=== PATIENT | male | born 1955 | race Caucasian/White ===

== ENCOUNTER 2018-12-06 15:41 | Inpatient (IN) ==
[2018-12-06] MEDS ORDERED: SODIUM CHLORIDE 0.9% 1000ML 1,000 ML IV SCH (16:00)
[2018-12-06 16:17] LABS: Basophils # (auto) 0.02 K/uL (0-0.2); Basophils % (auto) 0.3 %; Eosinophils # (auto) 0.05 K/uL (0-0.5); Eosinophils % (auto) 0.7 %; Hematocrit (blood only) 40.6 % (42-52); Hemoglobin 14.5 g/dL (14.0-18.0); Immature Granulocytes # (auto) 0.01 K/uL (0.00-0.02); Immature Granulocytes % (auto) 0.1 %; Lymphocytes # (auto) 0.73 K/uL (1.2-3.4); Lymphocytes % (auto) 9.6 %; Mean Corpuscular Hgb Conc 35.7 g/dL (32-36); Mean Corpuscular Volume 86.2 fL (80-100); Mean Platelet Volume 9.8 fL (7.4-10.4); Monocytes # (auto) 0.72 K/uL (0.11-0.59); Monocytes % (auto) 9.5 %; Neutrophils # (auto) 6.05 K/uL (1.4-6.5); Neutrophils % (auto) 79.8 %; Platelet Count 258 K/uL (130-400); RDW Coefficient of Variation 13.6 % (11.5-14.5); RDW Standard Deviation 43.5 fL (36.4-46.3); Red Blood Count 4.71 M/uL (4.7-6.1); White Blood Count 7.58 K/uL (4.8-10.8)
--- NOTE | 2018-12-06 16:19 | XRay Report ---
XR chest 1V portable CLINICAL HISTORY: weakness COMPARISON STUDY: 10/13/2014 FINDINGS: The cardiac and mediastinal contours are normal. There is no evidence of focal pulmonary co nsolidation. There is no evidence of failure. No pleural effusions are visualized.[A tiny radiopaque density projects over the left lower lung zone. This remain stable. There is equivocal slight superio r left hilar retraction unchanged from the prior study. There is slight prominence of the upper lobe interstitial markings. IMPRESSION: No active disease in the chest. Electronically signed by: Bakari Gee M.D. 12/06/2018 4:17 PM
[2018-12-06 16:28] LABS: Partial Thromboplastin Time 27.6 Seconds (21.0-31.0); Prothrombin Time 10.3 Seconds (9.0-12.0)
[2018-12-06 16:35] LABS: Alanine Aminotransferase 16 U/L (12-78); Aspartate Aminotransferase 12 U/L (15-37); BUN Creatinine Ratio 18.9 (10-20); Blood Urea Nitrogen 15 mg/dl (7-18); Carbon Dioxide 28 mmol/L (21-32); Chloride 103 mmol/L (98-107); Creatinine Clr Calc Pharmacy 66.8 ml/min; Est GFR (Non-African American) 94.9; Glucose 103 mg/dl (70-99); Magnesium 2.7 mg/dl (1.8-2.4); Potassium 3.8 mmol/L (3.5-5.1); Sodium 138 mmol/L (136-145)
--- NOTE | 2018-12-06 16:39 | CT Scan Report ---
CT head/brain wo con CLINICAL HISTORY: Headache COMPARISON STUDY: No previous studies for comparison. TECHNIQUE: Axial CT of the brain is performed from the vertex to the skull base. IV contrast was not administered for this examination. A dose lowering technique was utilized adhering to the principles of ALARA. CT DOSE: 638.56 mGycm FINDINGS: No intra or extra-axial mass lesions are visualized. There is no CT evidence of acute cortical infarc tion. There is no evidence of midline shift. There is no acute hemorrhage. No calvarial fractures ar e visualized. There are patchy white matter hypodensities likely on a small vessel basis. There is no evidence of pathologic ventricular dilatation. There is no evidence of acute sinusitis IMPRESSION: No acute intracranial findings Electronically signed by: Bakari Gee M.D. 12/06/2018 4:37 PM
--- NOTE | 2018-12-06 16:44 | Emergency Department Note ---
Entered by Meghna Carreon acting as a scribe for Cisco Grayson DO History of Present Illness General Chief complaint: Arrhythmia/Palpitations Stated complaint: RACING HEARTBEAT Source: patient History of Present Illness Provider complaint: Palpitations Location: neck and chest Pain Consistency: + other (worsening ) Quality: + constant Associated symptoms: + nausea/vomiting (nausea. No vomiting ) and + other (Positive: palpitations, neck pain, neck stiffness. Negative: abdominal pain, leg swelling, leg pain); no chest pain and no fever/chills The patient is a 63 year old male with past medical of appendectomy, ankylosing spondylitis, who presents to the ED with complaints of worsening palpitations that started a year ago. The patient reports he was taking care of his after she had a stroke and did not want to mention anything about his palpitations. He notes his palpitations were more frequent today. He states is nauseas and has neck pain and stiffness. The patient denies leg pain, leg swelling, chest pain, vomiting, abdominal pain, fever, chills, or history of blood clots in lungs or legs. Home Medications Home Medications Medication Instructions Recorded Confirmed Type oexfmqg-fzhnfnofrtqaj-djouihmi 1 - 2 tab PO BID PRN 12/06/18 12/06/18 History [Excedrin Migraine] golimumab [Simponi] 50 mg SUBCUT MONTHLY 12/06/18 12/06/18 History Allergies Allergy/AdvReac Type Severity Reaction Status Date / Time acetaminophen [From Lortab] Allergy Unknown Verified 12/06/18 20:30 cyclobenzaprine Allergy Unknown Verified 12/06/18 20:30 hydrocodone [From Lortab] Allergy Unknown Verified 12/06/18 20:30 Past Med/Surg History Medical History Abdominal pain (Acute) Ankylosing spondylitis (Acute) Small bowel obstruction (Acute) Surgical History History of appendectomy (Resolved) Family History Father Stroke Mother , of "old age" but no known health issues No problems noted. Other No known problems Social History Feels Safe at Home: Yes Smoking Status: Never smoker Hx Alcohol Use: No Hx Substance Use: No Review of Systems See HPI for pertinent positives & negatives. and A total of 10 systems reviewed and were otherwise negative Physical Exam Vital Signs Vital Signs - 24 hr 12/06/18 15:44 12/06/18 16:03 12/06/18 16:13 Temperature 36.8 C Temperature Source Oral Sepsis Recent Fever Within 48 Hours No Sepsis Action Taken by Nursing No Action Required Pulse Rate 103 H Pulse Rate [Left Finger] 90 Pulse Rate from SpO2 Sensor Respiratory Rate 20 20 Respiratory Effort / Characteristics Non-Labored Non-Labored Respiratory Depth Normal Normal Respiratory Pattern Regular Regular Blood Pressure 151/67 H Blood Pressure [Left Arm] 123/86 Blood Pressure Mean 95 Blood Pressure Mean [Left Arm] 98 Pulse Oximetry 98 96 97 Oxygen Delivery Method Room Air Room Air Room Air 12/06/18 17:04 12/06/18 17:29 12/06/18 18:04 Temperature Temperature Source Sepsis Recent Fever Within 48 Hours Sepsis Action Taken by Nursing Pulse Rate Pulse Rate [Left Finger] 105 H 102 H 114 H Pulse Rate from SpO2 Sensor Respiratory Rate 20 18 20 Respiratory Effort / Characteristics Non-Labored Non-Labored Non-Labored Respiratory Depth Normal Normal Normal Respiratory Pattern Regular Regular Regular Blood Pressure Blood Pressure [Left Arm] 129/81 147/88 H 136/88 Blood Pressure Mean Blood Pressure Mean [Left Arm] 97 107 104 Pulse Oximetry 98 98 97 Oxygen Delivery Method Room Air Room Air Room Air 12/06/18 18:32 12/06/18 18:39 12/06/18 18:45 Temperature Temperature Source Sepsis Recent Fever Within 48 Hours Sepsis Action Taken by Nursing Pulse Rate Pulse Rate [Left Finger] 100 H 98 H 88 Pulse Rate from SpO2 Sensor Respiratory Rate 29 H 20 18 Respiratory Effort / Characteristics Non-Labored Non-Labored Non-Labored Respiratory Depth Normal Normal Normal Respiratory Pattern Regular Regular Regular Blood Pressure Blood Pressure [Left Arm] 127/97 107/85 130/85 Blood Pressure Mean Blood Pressure Mean [Left Arm] 107 92 100 Pulse Oximetry 97 97 96 Oxygen Delivery Method Room Air Room Air Room Air 12/06/18 19:00 12/06/18 19:15 Temperature Temperature Source Sepsis Recent Fever Within 48 Hours Sepsis Action Taken by Nursing Pulse Rate 89 Pulse Rate [Left Finger] 88 Pulse Rate from SpO2 Sensor 81 Respiratory Rate 22 21 Respiratory Effort / Characteristics Non-Labored Respiratory Depth Normal Respiratory Pattern Regular Blood Pressure 139/98 Blood Pressure [Left Arm] 124/85 Blood Pressure Mean 111 Blood Pressure Mean [Left Arm] 98 Pulse Oximetry 96 97 Oxygen Delivery Method Room Air GENERAL: The patient is awake and alert. He is very cachectic and frail- appearing. He does not appear to be in pain. EYES: The conjunctivae are clear. The pupils are round and reactive. EARS, NOSE, MOUTH AND THROAT: The nose is without any evidence of any deformity. Mucous membranes are moist tongue is midline NECK: There is no midline tenderness noted in the cervical spine. Patient does have bilateral paravertebral tenderness to palpation. There is no step-off. Range of motion is limited secondary to previous surgery. RESPIRATORY: Normal respiratory effort is noted there is no evidence of wheezing rhonchi or rales CARDIOVASCULAR: Tachycardic and irregular rhythm was noted. There was no definite murmur noted. GASTROINTESTINAL: The abdomen is soft. Bowel sounds are present in all quadrants. Abdomen is nontender MUSCULOSKELETAL/EXTREMITIES: There is no evidence of gross deformity full range of motion is noted in the hips and shoulders SKIN: There is no obvious evidence of any rash. No pedal edema was noted. NEUROLOGIC: Patient is awake alert and oriented x3 strength is symmetric patellar reflexes are 2+ bilaterally Course 1552: The patient was evaluated in room A4B. A complete history and physical exam was performed. 1810: Upon reevaluation, the patient is resting comfortably. I discussed laboratory and radiographic results with him. The patient verbalized agreement of the treatment plan. The patient will be evaluated for further management and care. 1817: I discussed the patient's case with Dr. Torres, [facility] Hospitalist. She will evaluate the patient for further management. Consultations Consultation #1: I discussed the patient's case with Dr. Torres, [facility] Hospitalist. She will evaluate the patient for further management. Time: 18:17 Administered Medications Discontinued Medications Diltiazem HCl (Cardizem) 10 mg IV NOW STA Stop: 12/06/18 18:14 Last Admin: 12/06/18 18:31 Dose: 10 mg Documented by: [id number] Cosigned by: [id number] Sodium Chloride (Nss 1000ml) 1,000 mls @ 999 mls/hr IV .Q1H1M JACOB Stop: 12/06/18 17:00 Last Infusion: 12/06/18 17:23 Dose: 0 mls/hr Documented by: [id number] Admin: 12/06/18 16:18 Dose: 999 mls/hr Documented by: [id number] Medical Decision Making Differential Diagnosis Differential diagnosis: Etiologies such as premature contractions, electrolyte abnormality, cardiac dysrhythmia, thyroid dysfunction, pulmonary embolism, infection, gastrointestinal, as well as others were entertained. Medical Records Attestation: I reviewed the patient's medical records. Home Medications Current Medication List: was personally reviewed by me Laboratory Data Attestation: I reviewed the patient's lab results. Result diagrams: 12/06/18 16:06 12/06/18 16:06 Lab Results 12/06/18 12/06/18 12/06/18 Range/Units 16:06 16:06 16:06 WBC 7.58 (4.8-10.8) K/uL RBC 4.71 (4.7-6.1) M/uL Hgb 14.5 (14.0-18.0) g/dL Hct 40.6 L (42-52) % MCV 86.2 (80-100) fL MCH 30.8 (25-34) pg MCHC 35.7 (32-36) g/dL RDW Std Deviation 43.5 (36.4-46.3) fL RDW Coeff of Josefina 13.6 (11.5-14.5) % Plt Count 258 (130-400) K/uL MPV 9.8 (7.4-10.4) fL Immature Gran % (Auto) 0.1 % Neut % (Auto) 79.8 % Lymph % (Auto) 9.6 % [place] % (Auto) 9.5 % Eos % (Auto) 0.7 % Baso % (Auto) 0.3 % Immature Gran # (Auto) 0.01 (0.00-0.02) K/uL Neut # (Auto) 6.05 (1.4-6.5) K/uL Lymph # (Auto) 0.73 L (1.2-3.4) K/uL [place] # (Auto) 0.72 H (0.11-0.59) K/uL Eos # (Auto) 0.05 (0-0.5) K/uL Baso # (Auto) 0.02 (0-0.2) K/uL PT 10.3 (9.0-12.0) Seconds INR 1.0 (0.9-1.1) APTT 27.6 (21.0-31.0) Seconds PTT Ratio 1.0 Sodium 138 (136-145) mmol/L Potassium 3.8 (3.5-5.1) mmol/L Chloride 103 (98-107) mmol/L Carbon Dioxide 28 (21-32) mmol/L Anion Gap 7.0 (3-11) BUN 15 (7-18) mg/dl Creatinine 0.79 (0.6-1.4) mg/dl Est Cr Clr Drug Dosing 66.8 ml/min Est GFR ( Amer) 110.0 Est GFR (Non-Af Amer) 94.9 BUN/Creatinine Ratio 18.9 (10-20) Glucose 103 H (70-99) mg/dl Calcium 9.0 (8.5-10.1) mg/dl Magnesium 2.7 H (1.8-2.4) mg/dl Total Bilirubin 1.5 H (0.2-1) mg/dl AST 12 L (15-37) U/L ALT 16 (12-78) U/L Alkaline Phosphatase 58 (45-117) U/L Troponin I < 0.015 (0-0.045) ng/ml Total Protein 7.8 (6.4-8.2) gm/dl Albumin 4.0 (3.4-5.0) gm/dl Globulin 3.8 (2.5-4.0) gm/dl Albumin/Globulin Ratio 1.1 (0.9-2) TSH 1.800 (0.300-4.500) uIu/ml Urine Color Urine Appearance (Clear) Urine pH (4.5-7.5) Ur Specific [place] (1.000-1.030) Urine Protein (Negative) Urine Glucose (UA) (Negative) Urine Ketones (Negative) Urine Blood (Negative) Urine Nitrite (Negative) Urine Bilirubin (Negative) Urine Urobilinogen (Negative) Ur Leukocyte Esterase (Negative) 12/06/18 Range/Units 17:20 WBC (4.8-10.8) K/uL RBC (4.7-6.1) M/uL Hgb (14.0-18.0) g/dL Hct (42-52) % MCV (80-100) fL MCH (25-34) pg MCHC (32-36) g/dL RDW Std Deviation (36.4-46.3) fL RDW Coeff of Josefina (11.5-14.5) % Plt Count (130-400) K/uL MPV (7.4-10.4) fL Immature Gran % (Auto) % Neut % (Auto) % Lymph % (Auto) % [place] % (Auto) % Eos % (Auto) % Baso % (Auto) % Immature Gran # (Auto) (0.00-0.02) K/uL Neut # (Auto) (1.4-6.5) K/uL Lymph # (Auto) (1.2-3.4) K/uL [place] # (Auto) (0.11-0.59) K/uL Eos # (Auto) (0-0.5) K/uL Baso # (Auto) (0-0.2) K/uL PT (9.0-12.0) Seconds INR (0.9-1.1) APTT (21.0-31.0) Seconds PTT Ratio Sodium (136-145) mmol/L Potassium (3.5-5.1) mmol/L Chloride (98-107) mmol/L Carbon Dioxide (21-32) mmol/L Anion Gap (3-11) BUN (7-18) mg/dl Creatinine (0.6-1.4) mg/dl Est Cr Clr Drug Dosing ml/min Est GFR ( Amer) Est GFR (Non-Af Amer) BUN/Creatinine Ratio (10-20) Glucose (70-99) mg/dl Calcium (8.5-10.1) mg/dl Magnesium (1.8-2.4) mg/dl Total Bilirubin (0.2-1) mg/dl AST (15-37) U/L ALT (12-78) U/L Alkaline Phosphatase (45-117) U/L Troponin I (0-0.045) ng/ml Total Protein (6.4-8.2) gm/dl Albumin (3.4-5.0) gm/dl Globulin (2.5-4.0) gm/dl Albumin/Globulin Ratio (0.9-2) TSH (0.300-4.500) uIu/ml Urine Color Yellow Urine Appearance Clear (Clear) Urine pH 5.5 (4.5-7.5) Ur Specific [place] 1.016 (1.000-1.030) Urine Protein Negative (Negative) Urine Glucose (UA) Negative (Negative) Urine Ketones 1+ H (Negative) Urine Blood Negative (Negative) Urine Nitrite Negative (Negative) Urine Bilirubin Negative (Negative) Urine Urobilinogen Negative (Negative) Ur Leukocyte Esterase Negative (Negative) Imaging Data Radiologist's Impression: Radiology results as stated below per my review and the radiologist's interpretation: CT OF THE CERVICAL SPINE CLINICAL HISTORY: Neck pain COMPARISON STUDY: No previous studies for comparison. CT DOSE: 339.03 mGycm TECHNIQUE: CT scan of the cervical spine was performed from the skull base to the thoracic inlet. Images are reviewed in the axial, sagittal, and coronal planes. IV contrast was not administered for this examination. A dose lowering technique was utilized adhering to the principles of ALARA. FINDINGS: The visualized portions of the lung apices reveal no evidence of pneumothorax. There is a small left mastoid effusion. The prevertebral soft tissues are normal. No fractures or subluxations are visualized. There are multilevel degenerative changes There is ankylosis of the cervical spine, possibly secondary to ankylosing spondylitis. There are postsurgical changes of a posterior C1-2 fusion with posterior cable fixation IMPRESSION: 1. Postsurgical changes at the C1-2 level 2. No acute fractures or traumatic subluxations 3. Ankylosis of the cervical spine 4. Small left mastoid effusion Electronically signed by: Bakari Gee M.D. 12/06/2018 4:[address] head/brain wo con CLINICAL HISTORY: Headache COMPARISON STUDY: No previous studies for comparison. TECHNIQUE: Axial CT of the brain is performed from the vertex to the skull base. IV contrast was not administered for this examination. A dose lowering technique was utilized adhering to the principles of ALARA. CT DOSE: 638.56 mGycm FINDINGS: No intra or extra-axial mass lesions are visualized. There is no CT evidence of acute cortical infarction. There is no evidence of midline shift. There is no acute hemorrhage. No calvarial fractures are visualized. There are patchy white matter hypodensities likely on a small vessel basis. There is no evidence of pathologic ventricular dilatation. There is no evidence of acute sinusitis IMPRESSION: No acute intracranial findings Electronically signed by: Bakari Gee M.D. 12/06/2018 4:37 PM XR chest 1V portable CLINICAL HISTORY: weakness COMPARISON STUDY: 10/13/2014 FINDINGS: The cardiac and mediastinal contours are normal. There is no evidence of focal pulmonary consolidation. There is no evidence of failure. No pleural effusions are visualized.[A tiny radiopaque density projects over the left lower lung zone. This remain stable. There is equivocal slight superior left hilar retraction unchanged from the prior study. There is slight prominence of the upper lobe interstitial markings. IMPRESSION: No active disease in the chest. Electronically signed by: Bakari Gee M.D. 12/06/2018 4:17 PM ECG Data Attestation: I personally reviewed and interpreted this ECG as follows: Indication: palpitations Rate (beats per minute): 142 Rhythm: atrial fibrillation and sinus rhythm (also noted in the tracing ) Findings: + PVC Comparison ECG Date: from (10/13/14) Change: the following changes noted (Changes are new ) Blood Pressure Blood Pressure Findings: Normal blood pressure Blood Pressure Disposition: did not require urgent referral MDM Narrative The patient is a 63-year-old male who presented to the emergency department for an evaluation of palpitations. The patient states he been experiencing symptoms over the last few days but over the last 24 hours the symptoms have become more severe and symptomatic including dizziness. The patient was found to have paroxysmal atrial fibrillation. He would have runs of atrial fibrillation which would go into the 160s to 170 bpm. The patient was treated with IV fluids and IV Cardizem in the emergency department. I discussed the patient's laboratory and radiographic studies with him. He also had headache and neck pain and has a history of previous cervical spine surgery. For this reason radiographic studies were obtained to ensure there was no other intracranial or cervical spine pathology. Ultimately the patient was feeling much better but continued to have episodes of atrial fibrillation. For this reason I discussed his case with the on-call [facility] hospitalist group. They have agreed to evaluate patient in the emergency department for further management disposition. Impression & Plan Atrial fibrillation with RVR, Palpitations, Neck pain Discharge Plan Visit Data *Final* Discharge Date/Time: 12/06/18 20:04 Chief Complaint: Arrhythmia/Palpitations Stated Complaint: RACING HEARTBEAT ED Provider: Cisco Grayson Discharge Problem: Atrial fibrillation with RVR, Palpitations, Neck pain Patient Disposition: Admitted As Inpatient Discharge Instructions Interventions: ED Discharge Assessment Last Done: 12/06/18 20:04 The scribe's documentation has been prepared under my direction and personally reviewed by me in its entirety. I confirm that the note above accurately reflects all work, treatment, procedures, and medical decision making performed by me.
[2018-12-06 16:46] LABS: Albumin Globulin Ratio 1.1 (0.9-2); Alkaline Phosphatase 58 U/L (45-117); Bilirubin,Total 1.5 mg/dl (0.2-1); Globulin 3.8 gm/dl (2.5-4.0); Total Protein 7.8 gm/dl (6.4-8.2); Troponin I < 0.015 ng/ml (0-0.045)
[2018-12-06 17:46] LABS: Appearance Urine Clear (Clear); Bilirubin Urine Negative (Negative); Blood Urine Negative (Negative); Color Urine Yellow; Glucose Urine UA Negative (Negative); Ketones Urine 1+ (Negative); Leukocyte Esterase Urine Negative (Negative); Nitrite Urine Negative (Negative); Protein Urine Negative (Negative); Specific Gravity Urine 1.016 (1.000-1.030); Urobilinogen Urine Negative (Negative); pH Urine 5.5 (4.5-7.5)
[2018-12-06] MEDS ORDERED: dilTIAZem HCl 5 MG/ML 5 ML VIAL IV STA (18:13)
--- NOTE | 2018-12-06 19:34 | History & Physical Report ---
Date of Service December 06, 2018 Assessment & Plan (1) Atrial fibrillation with RVR: New dx for pt, however describes sx for years Cardizem in the ED and still in afib, but rate controlled Monitor Trop neg x1, serials pending Heparin drip for now and will need converted to PO, ideally a non-coumadin form ECHO pending EKG noted CXR neg Cardiology c/s pending (2) Abdominal fullness: Concerning given sx and weight loss No hx of c-scope May need t/c CTAP vs imaging Pt has been on golimumab x10 yrs and it does have malignancy, lymphoma, leukemia noted as possible serious adverse reactions CBC WNL (3) Ankylosing spondylitis: No new medications (4) DVT prophylaxis: SCDs, Heparin for DVT proph History of Present Illness Primary Care Provider: Ajay Contrears MD 63 y/o M c/o palpitations. Pt states that this has been happening for years but has been more frequent and more intense over the last few months. Pt states he thought it was related to his stomach. He states that he would eat and then feel an abd fullness "like I had gas". Then the palpitations would start. He would force belching and the palpitations would stop. It started to happen occasionally without eating and belching would stop the palpitations at those times also, but it was generally with eating. It was not with every meal or even every day until recently. Then, last night the palpitations were more intense and would not stop. Pt has never sought care for this issue. He states that he tried gas-x and some OTC "natural remedies" over the years but nothing has helped. Pt states that he has had a decreased appetite for the last 4-5 months. He states that he used to weigh around 130, but he weighed himself recently and was at 108lbs. He has no hx of c-scope. Pt has hx of ankylosing spondylitis. He takes a monthly subQ injectable and has been on this medication for 10 yrs. No other medications. Pt denies current palpitations. He states he feels at his usual other than is quite tired. Pt denies fever, SOB, chest pain, abd pain, n/v/c/d, LE pain or swelling. Allergies Allergy/AdvReac Type Severity Reaction Status Date / Time No Known Allergies Allergy Unverified 12/06/18 16:24 Home Medications Home Medications Medication Instructions Recorded Confirmed Type nkayibm-amnjiohlenqck-eqsquxpf 1 - 2 tab PO BID PRN 12/06/18 12/06/18 History [Excedrin Migraine] golimumab [Simponi] 50 mg SUBCUT MONTHLY 12/06/18 12/06/18 History Past Med/Surg History Medical History Abdominal pain (Acute) Ankylosing spondylitis (Acute) Small bowel obstruction (Acute) Surgical History History of appendectomy (Resolved) Family History Father Stroke Mother , of "old age" but no known health issues No problems noted. Other No known problems Social History Feels Safe at Home: Yes Smoking Status: Never smoker Hx Alcohol Use: No Hx Substance Use: No Review of Systems Review of Systems: Pertinent positives and negatives reviewed in HPI--all others negative Physical Exam Constitutional: WD/WN, vitals as above Eyes: normal visual ring by confrontation and + anicteric sclerae Neck: normal visual inspection and trachea midline Respiratory: normal respiratory effort, lungs clear to auscultation Cardiovascular: Rate/Rhythm: regular rate; + abnormal rhythm Gastrointestinal (Abdomen): Inspection/Auscultation: abdomen not distended Percussion/Palpation: abdomen soft; abdomen nontender Musculoskeletal: Head/Neck/Chest: normocephalic and head atraumatic negative for edema, peripheral pulses intact Skin: no rashes, warm and dry Neurologic: awake; not confused Speech / Cognition: normal speech Psychiatric: A+Ox3, euthymic affect Results & Data Vital Signs (Past 12 Hours) Vital Signs Temp Pulse Pulse Resp BP BP Pulse Ox 12/06/18 19:00 88 22 124/85 96 12/06/18 18:45 88 18 130/85 96 12/06/18 18:39 98 H 20 107/85 97 12/06/18 18:32 100 H 29 H 127/97 97 12/06/18 18:04 114 H 20 136/88 97 12/06/18 17:29 102 H 18 147/88 H 98 12/06/18 17:04 105 H 20 129/81 98 12/06/18 16:13 97 12/06/18 16:03 90 20 123/86 96 12/06/18 15:44 36.8 C 103 H 20 151/67 H 98 Diagnostic Findings CXR: neg for acute CT head: neg for acute CT c-spine: neg for acute ECG Rhythm: sinus tachycardia Code Status & VTE Plan Code Status Full code VTE Prophylaxis Plan VTE Prophylaxis will be ordered: Yes PG Care Time/CCT Total # of Minutes Spent Total Time Spent with Patient: Total time spent is greater than 50% in coordination of care (as documented) at patient's floor/unit and/or counseling patient:
[2018-12-06] MEDS ORDERED: Heparin IV Standard *NO* Bolus IV SCH (20:27)
[2018-12-06] MEDS ORDERED: ONDANSETRON INJ 2 MG/ML 2 ML VIAL IV PRN (20:27)
[2018-12-06] MEDS ORDERED: MAGNESIUM HYDROXIDE SUSP 30 ML UDC PO PRN (20:27)
[2018-12-06] MEDS: HEPARIN SODIUM/DEXTROSE 25,000 UNITS/500 ML BAG IV SCH (21:22)
[2018-12-07] MEDS: ACETAMINOPHEN 325 MG TAB PO PRN ×2 (03:53→13:15)
[2018-12-07 04:32] LABS: Partial Thromboplastin Ratio 1.7
[2018-12-07 04:34] LABS: Partial Thromboplastin Time 45.7 Seconds (21.0-31.0)
[2018-12-07] MEDS ORDERED: HEPARIN IV BOLUS 2,000 UNITS in SYRINGE 0 ML IV ONE (04:50)
[2018-12-07] MEDS: HEPARIN SODIUM/DEXTROSE 25,000 UNITS/500 ML BAG IV SCH (04:55)
--- NOTE | 2018-12-07 11:53 | Cardiology Consultation ---
Date of Consultation December 07, 2018 Assessment & Plan (1) Atrial dysrhythmia: EKG and quality assurance monitor body likely note a paroxysmal atrial tachycardia. This was reviewed with Dr. Bennett who agrees. Would discontinue heparin and start low-dose beta-blockade. If the beta-marcus controls his atrial tachycardia could discharged home later today. Would suggest follow-up with our electrophysiology team. Fortunately, left ventricular systolic function is normal. (2) Palpitations: Secondary to the atrial dysrhythmia. (3) Mitral regurgitation: Mild mitral regurgitation noted on the echocardiogram today. Fortunately, left ventricular systolic function is normal. History of Present Illness Attending Physician: Candace Torres, History of Present Illness Mr. Brower is a 63-year-old male admitted yesterday because of complaints of palpitations and a newly diagnosed tachycardia. The patient explains that he has felt intermittent palpitations for many years. However, over the last 3-4 months, his palpitations have increased in frequency and duration. The patient feels that this may be related to a "stomach issue. " The patient explains that after eating a meal, he develops a "gas" like sensation in his abdomen. His palpitations typically begin at that time. The patient and has been urged to "belching" and notices his palpitations to terminate. However, over the last 3-4 weeks, his palpitations occur at other times. The patient has never been diagnosed with a tachy dysrhythmia. He has never had a cardiac event. He has never experienced exertional chest pain or limiting dyspnea. He further denies syncope, presyncope, PND, orthopnea, lower extremity edema, and claudication. Patient explains that he has lost over 20 lb since the spring of this year. He has noticed a decrease in his appetite. Currently, patient is resting comfortably in bed without complaints. Past medical and surgical history 1. Paroxysmal atrial tachycardia 2. Ankylosing spondylitis 3. Appendectomy 4. Right inguinal hernia repair 5. History of small-bowel obstruction Social history and lives with his Works in the [employer] business No tobacco or alcohol Family history Mother from "old age" at 92 Father of a stroke at age 92 Review of systems A 10 point review of systems was undertaken and negative except for that described above. Allergies Allergy/AdvReac Type Severity Reaction Status Date / Time acetaminophen [From Lortab] Allergy Unknown Verified 12/06/18 20:30 cyclobenzaprine Allergy Unknown Verified 12/06/18 20:30 hydrocodone [From Lortab] Allergy Unknown Verified 12/06/18 20:30 Home Medications Home Medications Medication Instructions Recorded Confirmed Type [id number] 1 - 2 tab PO BID PRN 12/06/18 12/06/18 History [Excedrin Migraine] golimumab [Simponi] 50 mg SUBCUT MONTHLY 12/06/18 12/06/18 History Patient History Medical History Abdominal pain (Acute) Ankylosing spondylitis (Acute) Small bowel obstruction (Acute) Surgical History History of appendectomy (Resolved) Family History Father Stroke Mother , of "old age" but no known health issues No problems noted. Other No known problems Social History Preferred Language: [place] Communication Ability: Effective Cloth Inspector Required: No Beliefs That Will Affect Care: None Current Living Situation: Family Feels Safe at Home: Yes Smoking Status: Never smoker Hx Alcohol Use: No Hx Substance Use: No Physical Exam Physical Exam: In general this is a thin white male in no acute distress. HEENT exam is negative. Neck is supple with full carotid upstrokes. No carotid bruits. Jugular venous pressure is flat at 90. There is no thyromegaly. Cardiovascular exam reveals a regular rhythm with an occasional extrasystole. S1-S2 are normal. No murmurs. No S3 or S4. Lungs are clear without rales, rhonchi, or wheezes. Abdomen is soft without bruits. Extremities reveal intact radial artery pulses bilaterally. There is no peripheral edema. Results & Data Vital Signs (Past 12 Hours) Vital Signs Temp Pulse Pulse Resp BP Pulse Ox 12/07/18 11:20 37.2 C 91 H 16 118/84 95 12/07/18 07:16 36.7 C 75 18 119/72 98 12/07/18 03:50 36.9 C 88 20 124/78 98 12/07/18 00:16 36.9 C 80 17 129/73 98 Laboratory Results CBC notes hemoglobin of 14.5, hematocrit 40.6, white count 7.58, and platelet count [id number]. Electrolytes noted a sodium of 138, potassium 3.8, chloride 103, bicarb 28, BUN 15, creatinine 0.79, glucose of 103. three troponin I levels were undetectable less than 0.015. TSH is normal 1.8. Diagnostic Findings Initial EKG notes an atrial tachycardia converting to sinus rhythm. There is occasional PVC. Follow-up tracings notes sinus rhythm with frequent and consecutive PACs. child monitor notes numerous paroxysms of an atrial tachycardia. Echocardiogram notes normal left ventricular systolic function and mild mitral regurgitation. Chest x-ray shows no acute disease. PG Care Time/CCT Total # of Minutes Spent Total Time Spent with Patient: Total time spent is greater than 50% in coordination of care (as documented) at patient's floor/unit and/or counseling patient:
[2018-12-07] MEDS: METOPROLOL TARTRATE 25 MG TAB PO SCH ×2 (12:09→19:21)
[2018-12-07 12:17] LABS: Partial Thromboplastin Ratio 1.9
--- NOTE | 2018-12-07 15:01 | Discharge Summary ---
Date of Service December 07, 2018 Admission HPI Per Admitting Provider 63 y/o M c/o palpitations. Pt states that this has been happening for years but has been more frequent and more intense over the last few months. Pt states he thought it was related to his stomach. He states that he would eat and then feel an abd fullness "like I had gas". Then the palpitations would start. He would force belching and the palpitations would stop. It started to happen occasionally without eating and belching would stop the palpitations at those times also, but it was generally with eating. It was not with every meal or even every day until recently. Then, last night the palpitations were more intense and would not stop. Pt has never sought care for this issue. He states that he tried gas-x and some OTC "natural remedies" over the years but nothing has helped. Pt states that he has had a decreased appetite for the last 4-5 months. He states that he used to weigh around 130, but he weighed himself recently and was at 108lbs. He has no hx of c-scope. Pt has hx of ankylosing spondylitis. He takes a monthly subQ injectable and has been on this medication for 10 yrs. No other medications. Pt denies current palpitations. He states he feels at his usual other than is quite tired. Pt denies fever, SOB, chest pain, abd pain, n/v/c/d, LE pain or swelling. Principal Diagnosis Pt has had no further palpitations. He was able to eat without and of the "stomach issues" or "gas" that he had noted on admission. He would like to go home if possible. Pt denies fever, SOB, chest pain, abd pain, n/v/c/d, LE pain or swelling. Discharge Exam Constitutional WD/WN, vitals as above Eyes normal visual ring by confrontation and + anicteric sclerae Neck normal visual inspection and trachea midline Respiratory normal respiratory effort, lungs clear to auscultation Cardiovascular Rate/Rhythm: regular rate; + abnormal rhythm Gastrointestinal (Abdomen) Inspection/Auscultation: abdomen not distended Percussion/Palpation: abdomen soft; abdomen nontender Musculoskeletal Head/Neck/Chest: normocephalic and head atraumatic Skin no rashes, warm and dry Neurologic awake; not confused Speech / Cognition: normal speech Psychiatric A+Ox3, euthymic affect Discharge Data Allergies Allergy/AdvReac Type Severity Reaction Status Date / Time acetaminophen [From Lortab] Allergy Unknown Verified 12/06/18 20:30 cyclobenzaprine Allergy Unknown Verified 12/06/18 20:30 hydrocodone [From Lortab] Allergy Unknown Verified 12/06/18 20:30 Consultations 12/06/18 18:17 ED Decision to Admit Stat 12/06/18 20:27 Consult Cardiology Routine Consult Case Management - Discharge Planning Routine Ordered Studies 12/06/18 15:57 CT cervical spine wo con Stat CT head/brain wo con Stat Hospital Course (1) Atrial fibrillation with RVR: New dx for pt, however describes sx for years Cardizem in the ED with rate controlled, however ongoing arrhythmia Trop neg x3 ECHO WNL Multiple EKGs with sinus arrhythmia noted CXR neg Cardiology feels this is more of a sinus arrhythmia Recs for low dose beta marcus Started on 25mg and arrhythmia is resolved. No further sx and HR is WNL Advised to monitor BP closely (2) Abdominal fullness: Concerning given sx and weight loss No hx of c-scope May need t/c CTAP if ongoing Pt has been on golimumab x10 yrs and it does have malignancy, lymphoma, leukemia noted as possible serious adverse reactions CBC WNL I did discuss this with pt. If sx continue, he will need further workup (3) Ankylosing spondylitis: No new medications (4) DVT prophylaxis: SCDs, Heparin for DVT proph Total Time Total Time Spent Total Time Spent (In Minutes): > 30 Discharge Plan Discharge Items Patient Disposition: Home - Self-Care Reason For Visit: AFIB Discharge Diagnosis: sinus arrhythmia Discharge Goals: Decrease discomfort, Improve disease control and Improve function Activity: Resume your previous activity Non-emergency contact: Primary Care Provider Call non-emergency contact if: you have any medication questions and your symptoms worsen Follow-up/Referrals: Ajay Contreras MD [Primary Care Provider] - Diet: Regular Addtl Provider Instructions: You should check your blood pressure daily with the cuff you have at home. The medication that will help to control your heart rhythm (metoprolol) can also lower your blood pressure, which could make you feel lightheaded or dizzy. If this happens, check your blood pressure again. Take your readings with you to your primary care doctor. If your blood pressure drops below 110/60 or your heart rate drops below 55, you should be seen sooner. You should follow up with your primary care doctor this week. You should follow up with Dr. Bennett in 1-2 weeks. Prescriptions: New metoprolol tartrate 25 mg Tablet 25 mg PO BID Qty: 60 RF: 0 Continued Excedrin Migraine 250-250-65 mg Tablet 1 - 2 tab PO BID PRN (Reason: Pain) RF: 0 Simponi 50 mg/0.5 mL Syringe 50 mg SUBCUT MONTHLY RF: 0 Stand-Alone Forms: [facility] Discharge Orders: Discharge Order (Routine); Ordered 12/07/18 Ordered By: Candace Torres Admission Data Admit Date/Time: 12/06/18 19:29 Attending Provider: Candace Torres Admit Provider: Candace Torres Primary Care Provider: Ajay Contreras Other Providers: Candace Torres ; Eliot Bennett Service: Telemetry
--- NOTE | 2018-12-07 15:11 | History & Physical Bridge Note ---
Date of Service December 07, 2018 History & Physical Bridge Note Planning for d/c when pt had a sudden, unprovoked 16 beat run of vtach. Nursing states that pt had chest pressure with this. It resolved spontaneously. No other sx. Given this change and sx vtach, will hold on d/c and continue to monitor overnight. Nursing advised that if there is a repeat episode to contact cardiology. Please see d/c summary documentation for further info
[2018-12-08] MEDS: ACETAMINOPHEN 325 MG TAB PO PRN (07:59)
[2018-12-08] MEDS: METOPROLOL TARTRATE 25 MG TAB PO SCH ×2 (08:00→12:39)
--- NOTE | 2018-12-08 10:37 | Cardiology Progress Note ---
Date of Service December 08, 2018 Assessment & Plan (1) Atrial dysrhythmia: Suspect a symptomatic paroxysmal atrial tachycardia prompting this admission. Low-dose metoprolol tartrate has greatly reduce the frequency of his dysrhythmia and symptoms. Stable for hospital discharge. (2) Palpitations: Palpitations have greatly reduced since starting metoprolol tartrate. (3) Mitral regurgitation: Mild mitral regurgitation with normal left ventricular systolic function on echocardiogram. Subjective The patient is resting comfortably in bed without complaints of chest pain or dyspnea. Palpitations have diminished greatly. Physical Exam Physical Exam: In general this is a thin white male in no acute distress. HEENT exam is negative. Neck is supple with full carotid upstrokes. No carotid bruits. Jugular venous pressure is flat at 90. There is no thyromegaly. Cardiovascular exam reveals a regular rhythm with a normal S1 and S2. No murmurs. No S3 or S4. Lungs are clear without rales, rhonchi, or wheezes. Abdomen is soft without bruits. Extremities reveal intact radial artery pulses bilaterally. There is no peripheral edema. Results & Data Vital Signs (Past 12 Hours) Vital Signs Temp Pulse Pulse Pulse Resp BP Pulse Ox 12/08/18 08:05 37.1 C 88 17 128/92 97 12/08/18 03:32 36.7 C 65 17 114/80 98 12/07/18 23:01 36.7 C 79 17 116/77 98 12/07/18 22:54 52 L Diagnostic Findings Limiting monitor notes sinus rhythm in the significant reduction in his paroxys ms of atrial tachycardia. PACs are noted, but less frequent. PG Care Time/CCT Total # of Minutes Spent Total Time Spent with Patient: Total time spent is greater than 50% in coordination of care (as documented) at patient's floor/unit and/or counseling patient: 30 min
[2018-12-08] MEDS ORDERED: Nursing to Pharmacy Communication ONE (12:55)
--- NOTE | 2018-12-09 21:58 | Discharge Summary ---
Date of Service December 08, 2018 Admission HPI Per Admitting Provider 63 y/o M c/o palpitations. Pt states that this has been happening for years but has been more frequent and more intense over the last few months. Pt states he thought it was related to his stomach. He states that he would eat and then feel an abd fullness "like I had gas". Then the palpitations would start. He would force belching and the palpitations would stop. It started to happen occasionally without eating and belching would stop the palpitations at those times also, but it was generally with eating. It was not with every meal or even every day until recently. Then, last night the palpitations were more intense and would not stop. Pt has never sought care for this issue. He states that he tried gas-x and some OTC "natural remedies" over the years but nothing has helped. Pt states that he has had a decreased appetite for the last 4-5 months. He states that he used to weigh around 130, but he weighed himself recently and was at 108lbs. He has no hx of c-scope. Pt has hx of ankylosing spondylitis. He takes a monthly subQ injectable and has been on this medication for 10 yrs. No other medications. Pt denies current palpitations. He states he feels at his usual other than is quite tired. Pt denies fever, SOB, chest pain, abd pain, n/v/c/d, LE pain or swelling. Principal Diagnosis Atrial dysrythmia Discharge Exam Constitutional: WD/WN, vitals as above Eyes: normal visual ring by confrontation and + anicteric sclerae Neck: normal visual inspection and trachea midline Respiratory: normal respiratory effort, lungs clear to auscultation Cardiovascular: Rate/Rhythm: regular rate; + abnormal rhythm Gastrointestinal (Abdomen): Inspection/Auscultation: abdomen not distended Percussion/Palpation: abdomen soft; abdomen nontender Musculoskeletal: Head/Neck/Chest: normocephalic and head atraumatic negative for edema, peripheral pulses intact Skin: no rashes, warm and dry Neurologic: awake; not confused Speech / Cognition: normal speech Psychiatric: A+Ox3, euthymic affect Discharge Data Allergies Allergy/AdvReac Type Severity Reaction Status Date / Time acetaminophen [From Lortab] Allergy Unknown Verified 12/06/18 20:30 cyclobenzaprine Allergy Unknown Verified 12/06/18 20:30 hydrocodone [From Lortab] Allergy Unknown Verified 12/06/18 20:30 Consultations 12/06/18 18:17 ED Decision to Admit Stat 12/06/18 20:27 Consult Cardiology Routine Consult Case Management - Discharge Planning Routine Ordered Studies 12/06/18 15:57 CT cervical spine wo con Stat CT head/brain wo con Stat Hospital Course (1) Atrial fibrillation with RVR: New dx for pt, however describes sx for years Cardizem in the ED with rate controlled, however ongoing arrhythmia Trop neg x3 ECHO WNL Multiple EKGs with sinus arrhythmia noted CXR neg Cardiology feels this is more of a sinus arrhythmia Recs for low dose beta marcus Started on 25mg and arrhythmia is resolved. No further sx and HR is WNL Advised to monitor BP closely Appreciate input by cardiology. (1) Atrial dysrhythmia: Suspect a symptomatic paroxysmal atrial tachycardia prompting this admission. Low-dose metoprolol tartrate has greatly reduce the frequency of his dysrhythmia and symptoms. Stable for hospital discharge. (2) Palpitations: Palpitations have greatly reduced since starting metoprolol tartrate. (3) Mitral regurgitation: Mild mitral regurgitation with normal left ventricular systolic function on echocardiogram. (2) Abdominal fullness: Concerning given sx and weight loss No hx of c-scope May need t/c CTAP if ongoing Pt has been on golimumab x10 yrs and it does have malignancy, lymphoma, leukemia noted as possible serious adverse reactions CBC WNL I did discuss this with pt. If sx continue, he will need further workup. will defer to pcp (3) Ankylosing spondylitis: No new medications (4) DVT prophylaxis: SCDs, Heparin for DVT proph Total Time Total Time Spent Total Time Spent (In Minutes): 32 Total Time Includes: Examination of the Patient, Discharge Planning and Medication Reconciliation Discharge Plan Discharge Items Patient Disposition: Home - Self-Care Reason For Visit: AFIB Discharge Diagnosis: sinus arrhythmia Discharge Goals: Decrease discomfort, Improve disease control and Improve function Activity: Resume your previous activity Non-emergency contact: Primary Care Provider Call non-emergency contact if: you have any medication questions and your symptoms worsen Follow-up/Referrals: Ajay Contreras MD [Primary Care Provider] - Diet: Regular Addtl Provider Instructions: You should check your blood pressure daily with the cuff you have at home. The medication that will help to control your heart rhythm (metoprolol) can also lower your blood pressure, which could make you feel lightheaded or dizzy. If this happens, check your blood pressure again. Take your readings with you to your primary care doctor. If your blood pressure drops below 110/60 or your heart rate drops below 55, you should be seen sooner. You should follow up with your primary care doctor this week. You should follow up with Dr. Bennett in 1-2 weeks. Prescriptions: New metoprolol tartrate 25 mg Tablet 25 mg PO BID Qty: 60 RF: 0 Continued Excedrin Migraine 250-250-65 mg Tablet 1 - 2 tab PO BID PRN (Reason: Pain) RF: 0 Simponi 50 mg/0.5 mL Syringe 50 mg SUBCUT MONTHLY RF: 0 Stand-Alone Forms: [facility] Discharge Orders: Discharge Order (Routine); Ordered 12/08/18 Ordered By: Vaibhav Kingsley Admission Data Admit Date/Time: 12/06/18 19:29 Attending Provider: Vaibhav Kingsley Admit Provider: Candace Torres Primary Care Provider: Ajay Contreras Other Providers: Cisco Holguin Service: Telemetry Other Interventions: Discharge Summary Assessment (RN) Last Done: 12/08/18 12:27 DC Date/Time DO NOT enter until pt leaves facility: 12/08/18 13:00
== END 2018-12-08 13:00 | disposition home or self-care (01) | DRG 310 ==
LOC: ED 15:41 → 2S 19:29 → SUATTDRO 19:29 → 2S 20:04
DX: Z79.899 Other long term (current) drug therapy; R63.4 Abnormal weight loss; I48.91 Unspecified atrial fibrillation; R19.8 Other specified symptoms and signs involving the digestive system and abdomen; M45.9 Ankylosing spondylitis of unspecified sites in spine; Z82.3 Family history of stroke; I47.2 Ventricular tachycardia